=== PATIENT | female | born 1990 | race Caucasian/White ===

== ENCOUNTER 2016-12-01 12:07 | Emergency (ER) | payer BC ==
[2016-12-01 12:20] VITALS: BP 143/71
--- NOTE | 2016-12-01 12:45 | EDM.PDOC ---
<Shaial Stevens - Last Filed: 12/01/16 13:02> ED HPI Skin/Rash - General Chief Complaint: Skin Complaint Stated Complaint: TOES Time Seen by Provider: 12/01/16 12:21 Source: Reports: Patient History Limitations: Reports: No limitations - History of Present Illness INITIAL COMMENTS - FREE TEXT/NARRATIVE: Nilas is a 26 year old female that presents to ED today. According to patient she had a cyst under her right axilla 3 weeks ago that she hot packed and area opened up and drained and area was healed. Yesterday area under right axilla opened up and started to drain serous fluid accompanied by shooting pains that made it difficult to extend right arm fully. She also voices cyst to left groin where her scar is located. This area opened up and drained 2 days ago. She voice ingrown toe nails to bilateral great toes located on the lateral side closet to the 2nd toe bilaterally. Symptom Onset Date: 11/30/16 (first appearance was 3 weeks ago) Timing: Reports: worse Location, Skin: Reports: axillary (right axillary open area), groin (left side) Quality: Reports: Sharp, Throbbing Severity: moderate Known Identified Source: no Sick Contact: no Associated Symptoms: Denies: fever/chills, nausea/vomiting Recent Medical Care: no - Related Data Allergies Allergy/AdvReac Type Severity Reaction Status Date / Time No Known Allergies Allergy Verified 12/01/16 12:16 Home Meds: Ambulatory Orders Medication Instructions Recorded Confirmed . 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 ED EXAM, SKIN/RASH Exam: See Below Exam Limited By: No limitations General Appearance: alert, WD/WN, no apparent distress Ears: normal external exam, hearing grossly normal Nose: normal inspection Throat/Mouth: Normal inspection, Normal voice, No airway compromise Head: atraumatic, normocephalic Neck: normal inspection Respiratory/Chest: no respiratory distress, lungs clear, normal breath sounds, no accessory muscle use, chest non-tender Cardiovascular: regular rate, rhythm GI/Abdominal: normal bowel sounds, soft (Female) Exam: Deferred Rectal (Female) Exam: Deferred Extremities: normal inspection Neurological: alert, oriented, normal cognition, normal gait, normal reflexes Psychiatric: normal affect, normal mood Skin: Warm, Other (open areas to Lt groin and Rt armpit both draining scant amount of serous fluid. ) Location, Skin: other (bilateral great toes have an area of peeling skin on inspection, voices discomfort with palpation.) Lymphatic: no adenopathy Course - Vital Signs Last Recorded V/S: Last Vital Signs Temp 36.2 C 12/01/16 12:16 Pulse 79 12/01/16 12:16 Resp 16 12/01/16 12:16 BP 143/71 H 12/01/16 12:16 Pulse Ox 99 12/01/16 12:16 Departure - Departure Disposition: Home, Self-Care 01 Clinical Impression: Abscess, Ingrown toenail without infection Forms: ED Department Discharge Additional Instructions: Bactrim double strength by mouth twice a day #20 no refill Standard wound care instructions Followup with podiatry as discussed, consider partial excision of toenail Followup with primary care for continued management with abscess, wound cultures pending at this time Some salt soaks may benefit 2-3 times daily [facility] [address] [place], [place] [id number] The following information is given to patients seen in the emergency department who are being discharged to home. This information is to outline your options for follow-up care. We provide all patients seen in our emergency department with a follow-up referral. The need for follow-up, as well as the timing and circumstances, are variable depending upon the specifics of your emergency department visit. If you don't have a primary care physician on staff, we will provide you with a referral. We always advise you to contact your personal physician following an emergency department visit to inform them of the circumstance of the visit and for follow-up with them and/or the need for any referrals to a consulting specialist. The emergency department will also refer you to a specialist when appropriate. This referral assures that you have the opportunity for follow-up care with a specialist. All of these measure are taken in an effort to provide you with optimal care, which includes your follow-up. Under all circumstances we always encourage you to contact your private physician who remains a resource for coordinating your care. When calling for follow-up care, please make the office aware that this follow-up is from your recent emergency room visit. If for any reason you are refused follow-up, please contact the [facility] emergency department at and asked to speak to the emergency department charge nurse. <Kd Maki - Last Filed: 12/01/16 13:06> ED HPI Skin/Rash - History of Present Illness INITIAL COMMENTS - FREE TEXT/NARRATIVE: Seen and examined the patient he did agree with above Assessment Abscess right axilla with auto drainage, no active drainage at this time Abscess over pelvic region near her scar for transverse , was performed 2 years prior History of multiple abscesses Ingrown toenails bilateral great toes Plan Bactrim double strength by mouth twice a day #20 no refill Standard wound care instructions Followup with podiatry as discussed, consider partial excision of toenail Some salt soaks may benefit 2-3 times daily Departure - Departure Time of Disposition: 13:05 Condition: good
== END 2016-12-01 13:11 | disposition home or self-care (01) ==
LOC: MW.ED 12:07
DX: L60.0 Ingrowing nail (principal); L02.411 Cutaneous abscess of right axilla; L02.214 Cutaneous abscess of groin
CPT/HCPCS: 87070; 87077; 87186; 99283

== ENCOUNTER 2022-09-13 06:45 | Emergency (ER) | payer OTHER ==
[2022-09-13 06:57] VITALS: PULSE 100
[2022-09-13] MEDS: Dexamethasone 10 MG/ML SDV PO ONE (07:58)
[2022-09-13 08:58] LABS: CORONAVIRUS COVID-19 NAA NEGATIVE (NEGATIVE); INFLUENZA A NAA POSITIVE (NEGATIVE); INFLUENZA B NAA NEGATIVE (NEGATIVE); RESPIRATORY SYNCYTIAL VIR NAA NEGATIVE (NEGATIVE)
[2022-09-13 09:35] VITALS: BP 128/77
== END 2022-09-13 09:34 | disposition home or self-care (01) ==
LOC: MW.ED 06:45
DX: J11.1 Influenza due to unidentified influenza virus with other respiratory manifestations (principal); Z79.899 Other long term (current) drug therapy; Z20.822 Contact with and (suspected) exposure to COVID-19
CPT/HCPCS: 0241U; 87651; 99283; J8540

== ENCOUNTER 2024-07-19 16:48 | Emergency (ER) | payer OTHER ==
[2024-07-19 17:18] VITALS: BP 143/79
[2024-07-19] MEDS ORDERED: Sodium Chloride 0.9% 10 ML Syringe FLUSH PRN (17:24)
[2024-07-19] MEDS ORDERED: Sodium Chloride 0.9% 2.5 ML Syringe FLUSH PRN (17:24)
[2024-07-19] MEDS: Sodium Chloride 0.9% 1,000 ML IV SCH (17:48)
[2024-07-19] MEDS: Scopalamine 1mg/3day Transdermal Patch TRDERM STA (17:48)
[2024-07-19 18:04] LABS: BASOPHILS ABSOLUTE AUTO 0.02 K/uL (0.00-0.20); BASOPHILS PERCENT AUTO 0.2 % (0.0-1.0); EOSINOPHILS ABSOLUTE AUTO 0.26 K/uL (0.00-0.45); EOSINOPHILS PERCENT AUTO 2.4 % (0.0-6.0); HEMATOCRIT 43.2 % (37.0-47.0); HEMOGLOBIN 14.9 g/dL (12.0-16.0); IMMATURE GRAN ABSOLUTE AUTO 0.03 K/uL (0.00-0.05); IMMATURE GRAN PERCENT AUTO 0.3 % (0.0-0.4); LYMPHOCYTES ABSOLUTE AUTO 3.04 K/uL (1.00-4.80); LYMPHOCYTES PERCENT AUTO 27.9 % (24.0-44.0); MEAN CORPUSCULAR HEMOGLOBIN 30.5 pg (28.0-32.0); MEAN CORPUSCULAR HGB CONC 34.5 g/dL (32.0-36.0); MEAN CORPUSCULAR VOLUME 88.5 fL (83.0-99.0); MEAN PLATELET VOLUME 11.1 fL (9.4-12.3); MONOCYTES ABSOLUTE AUTO 0.42 K/uL (0.00-0.80); MONOCYTES PERCENT AUTO 3.9 % (0.0-8.0); NEUTROPHILS ABSOLUTE AUTO 7.12 K/uL (1.80-7.70); NEUTROPHILS PERCENT AUTO 65.3 % (41.0-71.0); PLATELET COUNT,PLT 266 K/uL (150-400); RED BLOOD CELL COUNT 4.88 M/uL (4.10-5.30); WHITE BLOOD CELL COUNT,WBC 10.89 K/uL (3.9-11.3)
[2024-07-19 18:32] LABS: APPEARANCE,URINE CLEAR; BILIRUBIN,URINE NEGATIVE (NEGATIVE); COLOR,URINE YELLOW; GLUCOSE,URINE NEGATIVE (NEGATIVE); KETONES,URINE NEGATIVE (NEGATIVE); LEUKOCYTE ESTERASE,URINE NEGATIVE (NEGATIVE); NITRITE,URINE POSITIVE (NEGATIVE); OCCULT BLOOD,URINE TRACE-INTACT (NEGATIVE); PROTEIN,URINE NEGATIVE (NEGATIVE); UROBILINOGEN,URINE 0.2 EU/dL (<2.0)
[2024-07-19 18:40] LABS: BACTERIA,URINE RARE (NEGATIVE); EPITHELIAL CELLS,URINE FEW (NONE-FEW); WBC,URINE 0-1 (0-5/HPF)
[2024-07-19 18:58] LABS: CORONAVIRUS COVID-19 NAA NEGATIVE (NEGATIVE); INFLUENZA A NAA NEGATIVE (NEGATIVE); INFLUENZA B NAA NEGATIVE (NEGATIVE)
[2024-07-19] MEDS: Cefdinir 300 MG Cap PO ONE (19:03)
[2024-07-19 19:29] LABS: A/G RATIO 1.2 (0.9-1.6); ALBUMIN 3.9 g/dL (3.4-5.0); BILIRUBIN TOTAL 0.5 mg/dL (0.2-1.0); CALCIUM 8.2 mg/dL (8.5-10.1); CARBON DIOXIDE,CO2 25.5 mmol/L (21.0-32.0); CREATININE 0.7 mg/dL (0.6-1.0); EST CRCL DRUG DOSING (CG) 82.11 mL/min; POTASSIUM,K 4.1 mmol/L (3.5-5.1); PROTEIN TOTAL,TP 7.1 g/dL (6.4-8.2)
[2024-07-19 19:49] VITALS: PULSE 102
== END 2024-07-19 19:52 | disposition home or self-care (01) ==
LOC: MW.ED 16:48
DX: N39.0 Urinary tract infection, site not specified (principal); Z79.899 Other long term (current) drug therapy; Z75.8 Other problems related to medical facilities and other health care
CPT/HCPCS: 0240U; 36415; 80053; 81001; 81025; 85025; 87086; 93005; 96360; 99284; A9270; J7030; 93010; 99283